=== PATIENT | female | born 1950 | race Caucasian/White ===

== ENCOUNTER 2018-12-16 08:59 | Day surgery (SDC) | payer OTHER | END 2018-12-16 14:45 | disposition home or self-care (01) | LOC: AMB-ENDOS 08:59 | DX: C19 Malignant neoplasm of rectosigmoid junction (principal) ==

== ENCOUNTER 2018-12-16 13:29 | Inpatient (IN) | payer OTHER ==
[2019-01-08] MEDS ORDERED: METOPROLOL TARTRATE 100 MG (12:40)
[2019-01-08] MEDS ORDERED: HYDROCHLOROTHIAZIDE 25 MG (12:40)
[2019-01-08] MEDS ORDERED: COZAAR100 MG (12:40)
[2019-01-08] MEDS ORDERED: ALENDRONATE SOD35 MG (12:40)
[2019-01-08] MEDS ORDERED: LIPITOR20 MG (12:41)
[2019-01-08] MEDS ORDERED: CLARITIN5 MG (12:41)
[2019-01-08] MEDS ORDERED: TYLENOL325 MG (12:41)
[2019-01-08] MEDS ORDERED: ZANTAC150 M3 (12:41)
[2019-01-15] MEDS ORDERED: METOPROLOL TAR100 MG PO (07:59)
[2019-01-15] MEDS ORDERED: HYDROCHLOROTHIA25 MG PO (07:59)
[2019-01-15] MEDS ORDERED: SIMVASTATIN20 MG PO (08:00)
== END 2019-01-19 10:38 | disposition home or self-care (01) | DRG 331 ==
LOC: SURH 01-08 11:00 → O/R 01-15 07:55 → SURH 01-15 07:55
PROVIDERS: ADMIT Colon & Rectal Surgery
PROC: 07TB4ZZ Resection of Mesenteric Lymphatic, Percutaneous Endoscopic Approach (ICD-10-PCS; 2019-01-15)
PROC: 0DJD8ZZ Inspection of Lower Intestinal Tract, Via Natural or Artificial Opening Endoscopic (ICD-10-PCS; 2019-01-15)
PROC: 0DTN4ZZ Resection of Sigmoid Colon, Percutaneous Endoscopic Approach (ICD-10-PCS; principal; 2019-01-15 07:00)
DX: C19 Malignant neoplasm of rectosigmoid junction (principal); E87.6 Hypokalemia; D64.89 Other specified anemias

== ENCOUNTER 2019-03-03 05:20 | Day surgery (SDC) | payer OTHER ==
[~2019-03-03 05:20] MED LIST: ABATINEX; ALENDRONATE SOD35 MG; CLARITIN5 MG; COZAAR100 MG; HYDROCHLOROTHIA25 MG PO; HYDROCHLOROTHIAZIDE 25 MG; LIPITOR20 MG; MAGNESIUM400 M1 PO; METOPROLOL TAR100 MG PO; METOPROLOL TARTRATE 100 MG; SIMVASTATIN20 MG PO; TYLENOL325 MG; ZANTAC150 M3
== END 2019-03-03 10:50 | disposition home or self-care (01) ==
LOC: CIR.AMB 05:20
DX: C19 Malignant neoplasm of rectosigmoid junction (principal)
CPT/HCPCS: 36561; C1751

== ENCOUNTER 2019-03-05 08:35 | Outpatient (CLI) | payer OTHER | END 2019-03-05 08:37 | disposition home or self-care (01) | LOC: RAD 08:35 | DX: C18.8 Malignant neoplasm of overlapping sites of colon (principal) ==